=== PATIENT | male | born 1965 | race African-American/Black ===

== ENCOUNTER 2017-01-17 11:59 | Emergency (ER) | payer OTHER ==
[~2017-01-17] VITALS: Ht 195.6 cm; Wt 99.0 kg
[~2017-01-17 11:59] MED LIST: AMO500 PO; BACTDS PO; CEPH-443 PO; IBUP-1542 PO
[2017-01-17 12:06] VITALS: Ht 195.6 cm; Wt 99.0 kg
[2017-01-17] MEDS ORDERED: LIDOCAINE 1% (MDV) 20 ML INJ SC ONE (12:30)
[2017-01-17] MEDS ORDERED: IBUP-1542 PO (12:40)
[2017-01-17] MEDS ORDERED: BACTDS PO (12:40)
--- NOTE | 2017-01-17 12:43 | ERD ---
ER Documentation Chief Complaint Date/Time DATE: 01/17/17 TIME: 12:41 Chief Complaint LT EYE PAIN HPI This 51-year-old male presents with swelling in his left upper eyelid worsening over the last week. He was prescribed Keflex and erythromycin ointment by his primary doctor. He is applying warm compresses but the lesion appears to be more localized and is not draining. He denies visual changes or involvement of the eye. Denies any fevers or additional complaints ROS All systems reviewed and are negative except as per history of present illness. Medications Home Meds Active Scripts Sulfamethoxazole-Trimethoprim* (Bactrim* DS) 800-160 Mg Tab, 1 TAB PO BID for 7 Days, TAB Prov:KADIE RAM MD 01/17/17 Ibuprofen* (Motrin*) 600 Mg Tab, 600 MG PO Q6, #15 TAB Prov:KADIE RAM MD 01/17/17 Ibuprofen* (Motrin*) 600 Mg Tab, 600 MG PO Q6, #20 TAB Prov:EMY CARREON PA-C 07/01/16 Amoxicillin* (Amoxicillin*) 500 Mg Cap, 500 MG PO TID for 7 Days, CAP Prov:EMY CARREON PA-C 07/01/16 Sulfamethoxazole-Trimethoprim* (Bactrim* DS) 800-160 Mg Tab, 1 TAB PO BID for 10 Days, TAB Prov:GABINO MAYS PA-C 01/12/16 Cephalexin* (Keflex*) 500 Mg Capsule, 500 MG PO Q6 for 10 Days, CAP Prov:GABINO MAYS PA-C 01/12/16 Allergies Allergies: Coded Allergies: No Known Allergy (Unverified , 06/09/15) PMhx/Soc History of Surgery: No Anesthesia Reaction: No Hx Neurological Disorder: No Hx Respiratory Disorders: No Hx Cardiac Disorders: No Hx Psychiatric Problems: No Hx Miscellaneous Medical Probl: No Hx Alcohol Use: No Hx Substance Use: No Hx Tobacco Use: No Physical Exam Vitals Vital Signs Date Time Temp Pulse Resp B/P Pulse Ox O2 Delivery O2 Flow Rate FiO2 01/17/17 12:06 98.1 91 18 145/68 99 Physical Exam Const: [] Alert, [id number]-[id number] per Head: Atraumatic Eyes: Normal Conjunctiva. There is a stye in the left upper eyelid which is significant and is a small pointing abscess without drainage. There is no proptosis or abnormal eye movements are periorbital swelling. Eyes are PERRLA and extraocular movements intact ENT: Normal External Ears, Nose and Mouth. Neck: Full range of motion..~ No meningismus. Resp: Clear to auscultation bilaterally Cardio: Regular rate and rhythm, no murmurs Abd: Soft, non tender, non distended. Normal bowel sounds Skin: No petechiae or rashes Back: No midline or flank tenderness Ext: No cyanosis, or edema Neur: Awake and alert Psych: Normal Mood and Affect Results 24 hrs Current Medications Medications (Trade) Dose Ordered Sig/Ivis Route PRN Reason Start Time Stop Time Status Last Admin Dose Admin Lidocaine (Xylocaine 1% (Mdv) 20 ml) 20 ml ONCE ONCE SC 01/17/17 12:30 01/17/17 12:31 DC Ibuprofen (Motrin) 600 mg ONCE ONCE PO 01/17/17 13:00 01/17/17 13:01 Trimethoprim/ Sulfamethoxazole (Bactrim (Ds)) 1 tab ONCE ONCE PO 01/17/17 13:00 01/17/17 13:01 Procedures/MDM This patient presents with a large cord limb on his left upper eyelid. There is no evidence to suggest orbital or periorbital cellulitis. There is no evidence of involvement of the globe or visual complaints Procedure note-left upper eyelid was prepped with alcohol. 0.1 cc of lidocaine was used for local infiltration. An 18-gauge needle was used to steffen the lesion. Positive pus was expressed and per epic compression was applied for hemostasis. The patient tolerated procedure well. Patient presents with a satisfactorily drain or limb of the left upper eyelid. He was given Bactrim double strength p.o. to cover for MRSA and will be discharged home with addition of Bactrim to his antibiotic regimen. Patient was advised to continue warm compresses, and return for worsening redness, swelling, fevers, visual changes, new or worsening symptoms. Departure Diagnosis: Primary Impression: Sty, external Laterality: left Eyelid: upper Qualified Code: H00.014 - Hordeolum externum of left upper eyelid Patient Instructions: Sty Additional Instructions: Continue warm compresses at home. Recheck for increasing redness, swelling, fevers, new symptoms. KADIE RAM MD Jan 17, 2017 12:43
[2017-01-17] MEDS ORDERED: IBUPROFEN 600 MG TAB PO ONE (13:00)
[2017-01-17] MEDS ORDERED: TRIMETHOPRIM/SULFAMETHOX (DS) TAB PO ONE (13:00)
== END 2017-01-17 12:50 | disposition home or self-care (01) ==
LOC: FTE 11:59
DX: H00.014 Hordeolum externum left upper eyelid (principal)
CPT/HCPCS: Z7502; Z7610; 99283

== ENCOUNTER 2019-06-16 09:56 | Emergency (ER) | payer OTHER ==
[~2019-06-16] VITALS: Ht 195.6 cm; Wt 101.0 kg
[~2019-06-16 09:56] MED LIST changes: -AMO500 PO; +AMOX500C2 PO; +AZIT250T PO; +BENZ-6 PO; +D-ME473S2 PO
[2019-06-16 09:59] VITALS: BP 129/81; PULSE 69; RESP 24; Ht 195.6 cm; Wt 101.0 kg
--- NOTE | 2019-06-16 11:28 | ERD ---
ER Documentation Chief Complaint Chief Complaint PRODCUTIVE COUGH WITH YELLOWISH COLORED THICK SPUTUM HPI 54-year-old male presenting with cough x1.5 weeks. Patient states is been productive with no fevers. Patient has some type chest has not tried any medications for his symptoms. Denies any other medical problems. NKDA. Surgical history denies. Social history denies ROS All systems reviewed and are negative except as per history of present illness. Medications Home Meds Active Scripts Dextromethorphan Hb-Promethazine Hcl* (Promethazine DM* Syrup) 473 Ml Syrup, 5 ML PO Q6 PRN for COUGH, #100 ML Prov:BETSY CARRILLO PA-C 06/16/19 Benzonatate* (Tessalon Perle*) 100 Mg Capsule, 100 MG PO Q8H PRN for COUGH, #30 CAP Prov:BETSY CARRILLO PA-C 06/16/19 Azithromycin* (Zithromax*) 250 Mg Tablet, 250 MG PO .ZPACK DIRECTED, #6 TAB TAKE 500 MG (2 TABS) THE FIRST DAY THEN 250 MG (1 TAB) DAYS 2-5 Prov:BETSY CARRILLO PA-C 06/16/19 Sulfamethoxazole-Trimethoprim* (Bactrim* DS) 800-160 Mg Tab, 1 TAB PO BID for 7 Days, TAB Prov:KADIE RAM MD 01/17/17 Ibuprofen* (Motrin*) 600 Mg Tab, 600 MG PO Q6, #15 TAB Prov:KADIE RAM MD 01/17/17 Ibuprofen* (Motrin*) 600 Mg Tab, 600 MG PO Q6, #20 TAB Prov:EMY CARREON PA-C 07/01/16 Amoxicillin* (Amoxicillin*) 500 Mg Cap, 500 MG PO TID for 7 Days, CAP Prov:EMY CARREON PA-C 07/01/16 Sulfamethoxazole-Trimethoprim* (Bactrim* DS) 800-160 Mg Tab, 1 TAB PO BID for 10 Days, TAB Prov:GABINO MAYS PA-C 01/12/16 Cephalexin* (Keflex*) 500 Mg Capsule, 500 MG PO Q6 for 10 Days, CAP Prov:GABINO MAYSC 01/12/16 Allergies Allergies: Coded Allergies: No Known Allergy (Unverified , 06/16/19) PMhx/Soc Medical and Surgical Hx: pt denies Medical Hx, pt denies Surgical Hx History of Surgery: No Anesthesia Reaction: No Hx Neurological Disorder: No Hx Respiratory Disorders: No Hx Cardiac Disorders: No Hx Psychiatric Problems: No Hx Miscellaneous Medical Probl: No Hx Alcohol Use: No Hx Substance Use: No Hx Tobacco Use: No Smoking Status: Never smoker FmHx Family History: No diabetes, No coronary disease, No other Physical Exam Vitals Vital Signs Date Temp Pulse Resp B/P (MAP) Pulse Ox O2 O2 Flow FiO2 Time Delivery Rate 06/16/19 97.2 69 24 129/81 98 09:59 (97) Physical Exam GENERAL: The patient is well-appearing, well-nourished, in no acute distress HEENT: Atraumatic. Conjunctivae are pink. Pupils equal, round, and reactive to light. There is no scleral icterus. Tympanic membranes clear bilaterally. Oropharynx clear. CHEST: Clear to auscultation bilaterally. There are no rales, wheezes or rhonchi. HEART: Regular rate and rhythm. No murmurs, clicks, rubs or gallops. Procedures/MDM MDM: 54-year-old male presenting with cough. I have low suspicion for pneumonia. I have low suspicion for respiratory distress or hypoxia. Patient will be placed on antibiotics given the systems have been persistent and worsening over the last week and a half. I have low suspicion for respiratory distress or hypoxia. Patient's vital signs are stable patient is nontoxic- appearing. Patient is discharged with strict ER precautions. I do not feel blood work or imaging is indicated in ER. Patient is told symptoms change or worsen to return immediately to the ER. All questions answered at discharge Departure Diagnosis: Primary Impression: Cough Condition: Stable Patient Instructions: Cough, Chronic, Uncertain Cause, (Adult) Referrals: [facility] YOU HAVE RECEIVED A MEDICAL SCREENING EXAM AND THE RESULTS INDICATE THAT YOU DO NOT HAVE A CONDITION THAT REQUIRES URGENT TREATMENT IN THE EMERGENCY DEPARTMENT. FURTHER EVALUATION AND TREATMENT OF YOUR CONDITION CAN WAIT UNTIL YOU ARE SEEN IN YOUR DOCTORS OFFICE WITHIN THE NEXT 1-2 DAYS. IT IS YOUR RESPONSIBILITY TO MAKE AN APPOINTMENT FOR FOLOW-UP CARE. IF YOU HAVE A PRIMARY DOCTOR --you should call your primary doctor and schedule an appointment IF YOU DO NOT HAVE A PRIMARY DOCTOR YOU CAN CALL OUR PHYSICIAN REFERRAL HOTLINE AT IF YOU CAN NOT AFFORD TO SEE A PHYSICIAN YOU CAN CHOSE FROM THE FOLLOWING [facility] [address] [facility] [address] [facility] [address] [facility] [address] [facility] [address] [facility] [address] [facility]. [address] Additional Instructions: FOLLOW UP WITH YOUR PRIMARY CARE PHYSICIAN TOMORROW.Return to this facility if you are not improving as expected. BETSY CARRILLO PA-C Jun 16, 2019 11:28
== END 2019-06-16 10:42 | disposition home or self-care (01) ==
LOC: FTE 09:56
DX: R05 Cough (principal)
CPT/HCPCS: 99283